=== PATIENT | male | born 1985 | race Hispanic/Latino ===

== ENCOUNTER 2017-11-21 14:11 | Emergency (ER) | payer MEDICARE ==
[2017-11-21 14:19] VITALS: PULSE 83; RESP 16; TEMP 97.6; O2SAT 99
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
== END 2017-11-21 15:54 | disposition home or self-care (01) ==
LOC: H.ER 14:11
DX: F32.9 Major depressive disorder, single episode, unspecified (principal); F31.9 Bipolar disorder, unspecified; F43.20 Adjustment disorder, unspecified; Z59.0 Homelessness